=== PATIENT | male | born 1980 | race African-American/Black ===

== ENCOUNTER 2023-01-26 08:44 | Emergency (ER) | payer OTHER, BC, SELFPAY ==
[2023-01-26 09:00] VITALS: BP 192/107; PULSE 77; RESP 16; TEMP 37.1; O2SAT 98
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
== END 2023-01-26 09:44 | disposition home or self-care (01) ==
PROVIDERS: Emergency Provider Nurse Practitioner Family
DX: I16.0 Hypertensive urgency (principal); I10 Essential (primary) hypertension; F17.210 Nicotine dependence, cigarettes, uncomplicated
CPT/HCPCS: 99212; G0463

== ENCOUNTER 2023-09-21 12:35 | Emergency (ER) | payer BC, SELFPAY ==
--- NOTE | 2023-09-21 12:37 | ED.EYEPROB ---
HPI - Eye Problem General Chief complaint: Eye Problems Stated complaint: Right Eye Irritation Time Seen by Provider: 09/21/23 12:37 Source: patient Mode of arrival: ambulatory Limitations: no limitations History of Present Illness HPI Narrative: Chapo is a 43-year-old male patient presenting to clinic today with complaints of right eye irritation/watery eye/ blurry vision and also is concerned about a possible STI. He reports he is having discomfort in his penis. Has tried to call his partner and they are not answering the phone. He denies any penile discharge. He reports no fever or chills. Denies any testicle pain. Related Data Home Medications Medication Instructions Recorded Confirmed amlodipine 5 mg tablet 5 mg PO DAILY 01/26/23 09/21/23 losartan 25 mg tablet 25 mg PO DAILY 09/21/23 09/21/23 Allergies Allergy/AdvReac Type Severity Reaction Status Date / Time oxaprozin Allergy Hives Verified 09/21/23 12:42 Review of Systems Review of Systems: Pertinent positives per HPI. Patient denies any fever, chills, rash, headache, visual changes, dizziness, cough, runny nose, sore throat, shortness of breath, chest pain, palpitations, nausea, vomiting, diarrhea, constipation, abdominal pain, or any urinary issues. [facility] Past Medical History Medical History Hypertension Surgical History Surgical History History of abdominal surgery Comments At the time of my signature, I reviewed and agree with the nursing past medical, surgical, social, and family history. There is no relevant family history pertinent to the patient complaint. Exam Narrative: General: Well-developed, well nourished, in no apparent distress Head: Normocephalic, atraumatic Eyes: Pupils equally round and reactive to light bilaterally, EOM intact, sclera and conjunctive clear, no discharge, lids normal Ears: TMs intact and clear, ear canals clear, no drainage, grossly hearing normal. Nose: Nares patent, no discharge, no inflammation, no sinus tenderness. Mouth: Oropharynx without lesions or masses, good dentition, MMM. Neck: Supple, trachea midline, no enlargement of anterior or posterior cervical nodes, no thyroid masses or goiter palpable. Cardio: Regular rate and rhythm, s1 and s2 normal, no murmur appreciated. Resp: Clear to auscultation bilaterally anteriorly and posteriorly, no rhonchi, rales, wheezing or rubs Abdomen: Soft, pliable, bowel sounds present in all quadrants, non-tender to palpation, no organomegly, no CVAT tenderness. : Circumcised male with white penile discharge coming from the urethra, tenderness to palpation/compression over the vas deferens, no lesions or masses noted to the penis or scrotum, no tenderness to palpation over the testes Course Course Emergency Course: Portions of this record may have been created with voice recognition software. Level of Care: Express Care Visit Vital Signs Vital signs: Vital Signs Blood Pressure 194/106 H 09/21/23 12:45 Temperature 37.1 C 09/21/23 12:50 Pulse Rate 85 09/21/23 12:50 Respiratory Rate 20 09/21/23 12:50 Blood Pressure 176/103 H 09/21/23 12:50 Pulse Oximetry 99 09/21/23 12:50 Oxygen Delivery Room Air 09/21/23 12:50 Vital signs reviewed MDM - Eye Problem MDM Narrative Medical decision making narrative: At the time of visit patient is resting comfortably on the exam table. Chlamydia, gonorrhea, and Trichomonas testing was sent to the lab. Patient has white penile discharge. Patient would like to be treated for STIs. Will empirically treat giving patient Flagyl and doxycycline. Rocephin 500 mg IM given in the clinic today. Urinalysis shows 2+ leukocytes, 1+ blood, and 1+ protein. Will go ahead and treat for urinary tract infection as well. Differential Diagnosis Differential diagnosis: Likely corn
[2023-09-21 12:45] VITALS: BP 194/106
[2023-09-21 12:50] VITALS: BP 176/103; PULSE 85; RESP 20; TEMP 37.1; O2SAT 99
[2023-09-21] MEDS: TETRACAINE HCL 0.5% OPHTH SOLN 4 ML BTL 1 DROP EACH EYE (13:03)
[2023-09-21] MEDS: FLUORESCEIN SOD 1 MG/STRIP EACH EYE (13:04)
[2023-09-21] MEDS: DACRIOSE EYE IRRIGATION 118 ML BOTTLE 50 ML RIGHT EYE (13:04)
[2023-09-21] MEDS: cefTRIAXone 500 MG, LIDOCAINE HCL 1% LOCAL INJ 1 ML IM (13:28)
[2023-09-21 19:43] LABS: Trichomonas Vag PCR NOT DETECTED (NOT DETECTE)
[2023-09-21 20:08] LABS: Chlamydia trachomatis NOT DETECTED (NOT DETECTE); Neisseria gonorrhoeae PCR DETECTED (NOT DETECTE)
== END 2023-09-21 13:55 | disposition home or self-care (01) ==
PROVIDERS: Emergency Provider Nurse Practitioner Family
DX: H53.8 Other visual disturbances (principal); N48.89 Other specified disorders of penis; R36.9 Urethral discharge, unspecified; I10 Essential (primary) hypertension
CPT/HCPCS: 81003; 87086; 87491; 87591; 87661; 96372; 99213; A9270; G0463; J0696